=== PATIENT | female | born 1965 | race Caucasian/White ===

== ENCOUNTER 2016-11-01 08:05 | Outpatient (CLI) | payer OTHER | END 2016-11-01 08:06 | disposition home or self-care (01) | DX: E78.5 Hyperlipidemia, unspecified (principal); E11.9 Type 2 diabetes mellitus without complications; Z51.81 Encounter for therapeutic drug level monitoring ==

== ENCOUNTER 2016-11-09 10:01 | Outpatient (CLI) | payer OTHER | END 2016-11-09 10:02 | disposition home or self-care (01) | DX: Z12.31 Encounter for screening mammogram for malignant neoplasm of breast (principal) ==

== ENCOUNTER 2017-01-10 10:02 | Outpatient (CLI) | payer OTHER | END 2017-01-10 10:03 | disposition home or self-care (01) | DX: G47.33 Obstructive sleep apnea (adult) (pediatric) (principal) ==

== ENCOUNTER 2017-03-02 08:11 | Outpatient (CLI) | payer OTHER | END 2017-03-02 08:12 | disposition home or self-care (01) | DX: E78.5 Hyperlipidemia, unspecified (principal); Z79.899 Other long term (current) drug therapy; E11.9 Type 2 diabetes mellitus without complications ==

== ENCOUNTER 2017-06-28 10:00 | Outpatient (CLI) | payer OTHER ==
[2017-06-28 14:11] LABS: HEMOGLOBIN A1C 0.71 g/dL
[2017-06-28 14:20] LABS: ALBUMIN/GLOBULIN RATIO 1.2 (1.0-2.2); BILIRUBIN,TOTAL 0.4 mg/dL (0.2-1.0); BUN - BLOOD UREA NITROGEN 11 mg/dL (6-20); CALCIUM 9.4 mg/dL (8.5-10.3); CARBON DIOXIDE - CO2 27 mmol/L (21-32); CHLORIDE 102 mmol/L (101-111); CHOL/HDL RATIO 3.7 (<4.4); CHOLESTEROL 136 mg/dL; CREATININE 0.7 mg/dL (0.4-1.0); GFR - MDRD 87 (>89); GLUCOSE 139 mg/dL (70-100); HDL CHOLESTEROL 37 mg/dL; LDL/HDL RATIO 2.2 (<4.4); POTASSIUM 4.1 mmol/L (3.5-5.0); SODIUM 138 mmol/L (135-145); TOTAL PROTEIN 7.2 g/dL (6.7-8.2); TRIGLYCERIDES 92 mg/dL; VLDL CHOLESTEROL 18 mg/dL
== END 2017-06-28 10:01 | disposition home or self-care (01) ==
LOC: LAB.WCP 10:00
PROVIDERS: ATTEND Physician Assistant Medical
DX: K76.0 Fatty (change of) liver, not elsewhere classified (principal); E78.5 Hyperlipidemia, unspecified; E11.9 Type 2 diabetes mellitus without complications; Z51.81 Encounter for therapeutic drug level monitoring; Z79.899 Other long term (current) drug therapy
CPT/HCPCS: 36415; 80053; 80061; 83036

== ENCOUNTER 2017-11-11 08:00 | Outpatient (CLI) | payer OTHER ==
[2017-11-11 12:59] LABS: ALBUMIN 3.8 g/dL (3.2-5.5); ALBUMIN/GLOBULIN RATIO 1.3 (1.0-2.2); ALKALINE PHOSPHATASE 71 IU/L (42-121); ALT ALANINE AMINOTRANSFERASE 31 IU/L (10-60); AST ASPARTATE AMINOTRANSFERASE 27 IU/L (10-42); BILIRUBIN,TOTAL 0.5 mg/dL (0.2-1.0); BUN - BLOOD UREA NITROGEN 15 mg/dL (6-20); CALCIUM 8.5 mg/dL (8.5-10.3); CARBON DIOXIDE - CO2 28 mmol/L (21-32); CHLORIDE 102 mmol/L (101-111); CHOL/HDL RATIO 3.6 (<4.4); CHOLESTEROL 123 mg/dL; CREATININE 0.7 mg/dL (0.4-1.0); GFR - MDRD 87 (>89); GLUCOSE 105 mg/dL (70-100); HDL CHOLESTEROL 34 mg/dL; LDL CHOLESTEROL,CALCULATED 70 mg/dL; LDL/HDL RATIO 2.1 (<4.4); SODIUM 137 mmol/L (135-145); TOTAL PROTEIN 6.8 g/dL (6.7-8.2); VLDL CHOLESTEROL 19 mg/dL
[2017-11-11 13:01] LABS: HB2 TOTAL 15.8 g/dL; HEMOGLOBIN A1C 0.69 g/dL; HEMOGLOBIN A1C % 6.1 % (4.6-6.2)
== END 2017-11-11 08:01 | disposition home or self-care (01) ==
LOC: LAB.WCP 08:00
PROVIDERS: ATTEND Physician Assistant Medical
DX: E78.5 Hyperlipidemia, unspecified (principal); E11.9 Type 2 diabetes mellitus without complications; Z51.81 Encounter for therapeutic drug level monitoring; Z79.899 Other long term (current) drug therapy
CPT/HCPCS: 36415; 80053; 80061; 83036; 83721; 84443

== ENCOUNTER 2017-12-22 08:01 | Outpatient (CLI) | payer OTHER ==
--- NOTE | 2017-12-23 13:10 | Mammography Report ---
DIGITAL SCREENING MAMMOGRAM: 12/22/2017 CLINICAL INDICATION: A 52-year-old, for screening. COMPARISON: 10/2016, 07/2015, 02/2012, 01/2011. TECHNIQUE: Routine CC and MLO projections were obtained of the breasts. FINDINGS: The breasts again demonstrate scattered fibroglandular densities bilaterally. In the left upper outer posterior breast, there are possible new calcifications. Further evaluation with spot magnification views is recommended. No mammographically suspicious findings are appreciated in the right breast. IMPRESSION: INCOMPLETE EXAMINATION. RECOMMENDATION: ADDITIONAL EVALUATION OF THE LEFT BREAST ABOVE. BIRADS CATEGORY 0-INCOMPLETE. STANDARD QUALIFYING STATEMENTS: 1. This examination was reviewed with the aid of Computer-Aided Detection (CAD). 2. A negative or benign imaging report should not delay biopsy if clinically suspicious findings are present. Consider surgical consultation if warranted. More than 5% of cancers are not identified by imaging. 3. Dense breasts may obscure an underlying neoplasm. TD: 12/23/2017 13:09
== END 2017-12-22 08:02 | disposition home or self-care (01) ==
LOC: DI 08:01
PROVIDERS: ATTEND Physician Assistant Medical
DX: Z12.31 Encounter for screening mammogram for malignant neoplasm of breast (principal); R92.8 Other abnormal and inconclusive findings on diagnostic imaging of breast
CPT/HCPCS: 77067

== ENCOUNTER 2017-12-22 08:02 | Outpatient (CLI) | payer OTHER ==
--- NOTE | 2017-12-22 15:05 | DEXA Report ---
DEXA SCAN: 12/22/2017 CLINICAL INDICATION: Postmenopausal. TECHNIQUE: Dual energy x-ray absorptiometry (DXA) was performed on a [employer] system. Regions measured are the AP spine, femoral neck, and, if needed, forearm. COMPARISON: None. In accordance with the International Society for Clinical Densitometry (ISCD) guidelines, data from previous exams may be reanalyzed using current recommendations and techniques. This is done to allow a more accurate basis for comparison with the current study. FINDINGS The data for the lumbar spine is as follows: REGION BMD (g/cm/cm) T-SCORE Z-SCORE L1 1.024 -0.9 -1.2 L2 1.037 -1.4 -1.6 L3 1.057 -1.2 -1.5 L4 1.010 -1.6 -1.9 TOTAL 1.032 -1.2 -1.5 NOTE: All evaluable vertebrae are used for classification. The data for the hip is as follows: REGION BMD (g/cm/cm) T-SCORE Z-SCORE Neck 1.038 0.0 0.3 TOTAL 1.141 1.1 0.9 NOTE: The femoral neck or total proximal femur, whichever is lowest, is used for classification. IMPRESSION THE WHO CLASSIFICATION BASED ON THE INTERNATIONAL REFERENCE STANDARD IS OSTEOPENIA. THE FRACTURE RISK IS INCREASED. RECOMMENDATION: Patients with diagnosis of osteoporosis or osteopenia should have regular bone mineral density assessment. For those eligible for Medicare, routine testing is allowed once every 2 years. Testing frequency can be increased for patients who have rapidly progressing disease or for those who are receiving medical therapy to restore bone mass. COMMENT: World Health Organization (WHO) definitions for osteoporosis and osteopenia: NORMAL BMD: T-score at 1.0 or higher, fracture risk is low. OSTEOPENIA BMD: T-score between 1.0 and -2.5, fracture risk is increased. OSTEOPOROSIS BMD: T-score at 2.5 or lower, fracture risk high. National Osteoporosis Foundation recommends: 1. Obtain adequate dietary calcium (at least 1200 mg per day) and vitamin D (400 -800 international units per day). 2. Participate, as appropriate, in regular weightbearing and muscle- strengthening exercise. 3. Avoid tobacco use and reduce alcohol and caffeine intake. 4. For more detailed information see the website at www.NOF.org. TD: 12/22/2017 13:06 JENNIFER
== END 2017-12-22 08:03 | disposition home or self-care (01) ==
LOC: DI 08:02
PROVIDERS: ATTEND Physician Assistant Medical
DX: M85.88 Other specified disorders of bone density and structure, other site (principal)
CPT/HCPCS: 77080

== ENCOUNTER 2017-12-28 13:18 | Outpatient (CLI) | payer OTHER ==
--- NOTE | 2017-12-28 14:45 | Mammography Report ---
DIAGNOSTIC LEFT MAMMOGRAM: 12/28/2017 CLINICAL INDICATION: Calcifications left upper outer quadrant. TECHNIQUE: Left true lateral and spot magnification views. COMPARISON: 12/22/2017, 11/09/2016, 08/19/2015, 02/23/2012, 02/16/2011. FINDINGS: The left breast again demonstrates scattered fibroglandular densities. In the left upper outer central breast, there is a group of amorphous to pleomorphic calcifications, spanning approximately 1.4 cm of parenchyma. No definite associated mass is identified. The appearance is suspicious. Biopsy is recommended. The calcifications appear amenable to stereotactic sampling. IMPRESSION: SUSPICIOUS AMORPHOUS TO PLEOMORPHIC CALCIFICATIONS IN THE LEFT UPPER OUTER QUADRANT. RECOMMENDATION: Biopsy. The calcifications appear amenable to stereotactic sampling. BIRADS CATEGORY 4 - suspicious abnormality. Results and recommendations discussed with the patient at the time of the examination, and called to the office of Luanne Patel PA-C on 12/28/2017. Imaging will be forwarded to [facility] to coordinate stereotactic biopsy. STANDARD QUALIFYING STATEMENTS: 1. This examination was reviewed with the aid of Computer-Aided Detection (CAD) . 2. A negative or benign imaging report should not delay biopsy if clinically suspicious findings are present. Consider surgical consultation if warranted. More than 5 % of cancers are not identified by imaging. 3. Dense breasts may obscure an underlying neoplasm. TD: 12/28/2017 14:44 JENNIFER
== END 2017-12-28 13:19 | disposition home or self-care (01) ==
LOC: DI 13:18
PROVIDERS: ATTEND Physician Assistant Medical
DX: R92.1 Mammographic calcification found on diagnostic imaging of breast (principal)

== ENCOUNTER 2018-01-24 10:00 | Outpatient (CLI) | payer OTHER ==
[2018-01-24 12:49] LABS: ALBUMIN 3.6 g/dL (3.2-5.5); ALBUMIN/GLOBULIN RATIO 1.2 (1.0-2.2); BILIRUBIN,TOTAL 0.4 mg/dL (0.2-1.0); CALCIUM 8.8 mg/dL (8.5-10.3); CREATININE 0.7 mg/dL (0.4-1.0); TOTAL PROTEIN 6.7 g/dL (6.7-8.2)
== END 2018-01-24 10:01 | disposition home or self-care (01) ==
LOC: LAB.WCP 10:00
PROVIDERS: ATTEND Family Medicine
DX: Z51.81 Encounter for therapeutic drug level monitoring (principal); Z79.899 Other long term (current) drug therapy
CPT/HCPCS: 36415; 80053

== ENCOUNTER 2018-01-30 07:50 | Outpatient (CLI) | payer OTHER ==
[2018-01-30] MEDS ORDERED: GADOBUTROL 10 MMOL/10 ML SYRINGE ONE (07:57)
[2018-01-30] MEDS ORDERED: GADOBUTROL 10 MMOL/10 ML SYRINGE IVP ONE (08:32)
--- NOTE | 2018-01-30 14:27 | MRI Report ---
MRI OF BILATERAL BREASTS WITH AND WITHOUT CONTRAST: 01/30/2018 CLINICAL INDICATION: Biopsy-proven left breast cancer. TECHNIQUE: Using a dedicated breast coil, axial precontrast STIR, T1, dynamic postcontrast axial 3-D images, axial 3-D high resolution images, and postcontrast diffusion-weighted images were obtained. 9 mL of Gadavist was administered intravenously. Post-processing with dynamic contrast enhancement analysis and multiplanar reformations were performed with the [employer]. FINDINGS: The breasts demonstrate minimal background parenchymal enhancement. RIGHT BREAST: There is no suspicious mass or parenchymal enhancement. Right axillary lymph nodes are morphologically normal. LEFT BREAST: In the left upper central posterior breast, approximately 8 cm from the nipple, there is a focus of enhancement, likely correlating with the biopsied ductal carcinoma in situ with small focus of invasive carcinoma. This measures 1.5 x 1.3 x 0.9 cm, and demonstrates moderate enhancement with plateau kinetics. There is a morphologically indeterminate left axillary lymph node. IMPRESSION: FOCUS OF ABNORMAL ENHANCEMENT IN THE LEFT UPPER CENTRAL POSTERIOR BREAST, LIKELY CORRELATING WITH THE BIOPSIED DUCTAL CARCINOMA IN SITU AND SMALL FOCUS OF INVASIVE CARCINOMA. MORPHOLOGICALLY INDETERMINATE LEFT AXILLARY LYMPH NODE. NO EVIDENCE OF SKIN, NIPPLE, OR CHEST WALL INVOLVEMENT. NO EVIDENCE OF CONTRALATERAL ABNORMALITY. RECOMMENDATION: SURGICAL TREATMENT PLANNING. BIRADS CATEGORY 6-KNOWN MALIGNANCY. THE PATIENT HAS BEEN INSTRUCTED TO OBTAIN RESULTS FROM MAU ESCOBAR PA-C IN 5 BUSINESS DAYS. COMMENT: BREAST MRI IS A HIGHLY SENSITIVE EXAMINATION, AND HAS A CANCER DETECTION THRESHOLD DOWN TO APPROXIMATELY 5 MM; HOWEVER, IT ONLY HAS MODERATE SPECIFICITY. ALTHOUGH BREAST MRI HAS A HIGH NEGATIVE PREDICTIVE VALUE, APPROPRIATE CLINICAL AND MAMMOGRAPHIC FOLLOWUP ARE ALWAYS NECESSARY. MRI MAY MISS LESS ANGIOGENIC TUMORS; THEREFORE, IT SHOULD NOT BE USED TO AVOID A BIOPSY WHICH IS OTHERWISE CLINICALLY INDICATED. NORMAL APPEARING LYMPH NODES MAY CONTAIN MICROSCOPIC TUMOR. DUE TO PRONE POSITIONING, THE DESCRIBED LOCATION OF FINDINGS MAY DIFFER FROM OTHER MODALITIES. TD: 01/30/2018 14:26
== END 2018-01-30 07:51 | disposition home or self-care (01) ==
LOC: DI 07:50
PROVIDERS: ATTEND Physician Assistant Medical
DX: D05.12 Intraductal carcinoma in situ of left breast (principal); C50.812 Malignant neoplasm of overlapping sites of left female breast
CPT/HCPCS: 77059; A9585

== ENCOUNTER 2018-03-09 08:00 | Outpatient (CLI) | payer OTHER ==
[2018-03-09 12:54] LABS: HB2 TOTAL 15.2 g/dL; HEMOGLOBIN A1C 0.73 g/dL; HEMOGLOBIN A1C % 6.5 % (4.6-6.2)
[2018-03-09 13:05] LABS: CHOLESTEROL 123 mg/dL; HDL CHOLESTEROL 31 mg/dL; LDL CHOLESTEROL,CALCULATED 69 mg/dL; LDL/HDL RATIO 2.2 (<4.4); VLDL CHOLESTEROL 23 mg/dL
== END 2018-03-09 08:01 | disposition home or self-care (01) ==
LOC: LAB.WCP 08:00
PROVIDERS: ATTEND Physician Assistant Medical
DX: E78.5 Hyperlipidemia, unspecified (principal); E11.9 Type 2 diabetes mellitus without complications
CPT/HCPCS: 36415; 80061; 83036; 83721

== ENCOUNTER 2018-04-25 08:51 | Outpatient (CLI) | payer OTHER | END 2018-04-25 08:52 | disposition home or self-care (01) | LOC: SC 08:51 | PROVIDERS: ATTEND Nurse Practitioner Family | DX: G47.33 Obstructive sleep apnea (adult) (pediatric) (principal) | CPT/HCPCS: 99212; 99213 ==

== ENCOUNTER 2018-06-14 07:25 | Outpatient (CLI) | payer OTHER ==
[2018-06-14 13:21] LABS: HB2 TOTAL 14.6 g/dL; HEMOGLOBIN A1C 0.74 g/dL; HEMOGLOBIN A1C % 6.8 % (4.6-6.2)
[2018-06-14 13:22] LABS: CALCIUM 8.7 mg/dL (8.5-10.3); CREATININE 0.6 mg/dL (0.4-1.0)
== END 2018-06-14 07:26 | disposition home or self-care (01) ==
LOC: LAB.WCP 07:25
PROVIDERS: ATTEND Physician Assistant Medical
DX: E11.9 Type 2 diabetes mellitus without complications (principal)
CPT/HCPCS: 36415; 80048; 83036

== ENCOUNTER 2018-09-11 07:35 | Outpatient (CLI) | payer OTHER ==
[2018-09-11 16:57] LABS: ALBUMIN 3.6 g/dL (3.2-5.5); ALBUMIN/GLOBULIN RATIO 1.2 (1.0-2.2); ALKALINE PHOSPHATASE 54 IU/L (42-121); ALT ALANINE AMINOTRANSFERASE 32 IU/L (10-60); AST ASPARTATE AMINOTRANSFERASE 36 IU/L (10-42); BILIRUBIN,TOTAL 0.7 mg/dL (0.2-1.0); BUN - BLOOD UREA NITROGEN 12 mg/dL (6-20); CALCIUM 8.6 mg/dL (8.5-10.3); CARBON DIOXIDE - CO2 27 mmol/L (21-32); CHLORIDE 106 mmol/L (101-111); CHOL/HDL RATIO 4.2 (<4.4); CHOLESTEROL 123 mg/dL; CREATININE 0.6 mg/dL (0.4-1.0); GFR - MDRD 104 (>89); GLUCOSE 122 mg/dL (70-100); HDL CHOLESTEROL 29 mg/dL; LDL CHOLESTEROL,CALCULATED 75 mg/dL; LDL/HDL RATIO 2.6 (<4.4); SODIUM 138 mmol/L (135-145); TOTAL PROTEIN 6.5 g/dL (6.7-8.2); VLDL CHOLESTEROL 19 mg/dL
[2018-09-11 17:22] LABS: HB2 TOTAL 15.1 g/dL; HEMOGLOBIN A1C 0.66 g/dL; HEMOGLOBIN A1C % 6.2 % (4.6-6.2)
== END 2018-09-11 07:36 | disposition home or self-care (01) ==
LOC: LAB.WCP 07:35
PROVIDERS: ATTEND Physician Assistant Medical
DX: E11.9 Type 2 diabetes mellitus without complications (principal)
CPT/HCPCS: 36415; 80053; 80061; 83036; 83721

== ENCOUNTER 2018-10-25 08:21 | Outpatient (CLI) | payer OTHER ==
--- NOTE | 2018-10-25 09:29 | Mammography Report ---
Reason: LT BREAST CA Procedure Date: 10/25/2018 Accession Number: [id number] / [id number] Procedure: NICK - Diagnostic Dig Bilat CPT Code: FULL RESULT: EXAM: Diagnostic Dig Bilat DATE: 10/25/2018 9:10 AM CLINICAL HISTORY: Diagnostic examination. Personal history of left breast cancer status post lumpectomy December 2017 followed by Radiation therapy. This is a new baseline post treatment. TECHNIQUE: Bilateral CC and MLO views were obtained and 2-D and 3-D mammographic technique. COMPARISON: 12/28/2017 through 02/23/2012. FINDINGS: The breasts demonstrate scattered fibroglandular densities bilaterally. Interval postsurgical and posttreatment changes are now noted in the left breast. No suspicious calcifications, architectural distortion or masses are identified. IMPRESSION: Benign findings RECOMMENDATION: 6 month diagnostic mammogram of the left breast. Annual screening for the right breast. BIRADS CATEGORY 2: Benign findings STANDARD QUALIFYING STATEMENTS: 1. This examination was not reviewed with the aid of Computer-Aided Detection (CAD). 2. A negative or benign imaging report should not delay biopsy if clinically suspicious findings are present. Consider surgical consultation if warrented. More than 5% of cancers are not identified by imaging. 3. Dense breasts may obscure an underlying neoplasm. 4. This examination was reviewed with the aid of 3D imaging (tomography).
== END 2018-10-25 08:22 | disposition home or self-care (01) ==
LOC: DI 08:21
PROVIDERS: ATTEND Internal Medicine Hematology & Oncology
DX: Z08 Encounter for follow-up examination after completed treatment for malignant neoplasm (principal); Z85.3 Personal history of malignant neoplasm of breast
CPT/HCPCS: 77066

== ENCOUNTER 2019-01-08 07:50 | Outpatient (CLI) | payer OTHER ==
[2019-01-08 13:59] LABS: BASOPHILS # (AUTO) 0.1 10^3/uL (0.0-0.1); BASOPHILS % (AUTO) 0.9 %; EOSINOPHILS # (AUTO) 0.1 10^3/uL (0.0-0.7); EOSINOPHILS % (AUTO) 2.2 %; HGB - HEMOGLOBIN 13.7 g/dL (12.0-16.0); LYMPHOCYTES # (AUTO) 2.3 10^3/uL (1.5-3.5); LYMPHOCYTES % (AUTO) 33.9 %; MEAN CORPUSCULAR HGB CONC 34.5 g/dL (32.0-36.0); MEAN CORPUSCULAR VOLUME 92.8 fL (81.0-99.0); MEAN PLATELET VOLUME 9.8 fL (7.9-10.8); MONOCYTES # (AUTO) 0.5 10^3/uL (0.0-1.0); MONOCYTES % (AUTO) 8.1 %; NEUTROPHILS # (AUTO) 3.7 10^3/uL (1.5-6.6); NEUTROPHILS % (AUTO) 54.9 %; PLT - PLATELET COUNT 198 10^3/uL (130-450); RED BLOOD COUNT 4.27 10^6/uL (4.20-5.40); RED CELL DISTRIBUTION WIDTH 13.1 % (12.0-15.0); WHITE BLOOD COUNT 6.7 x10^3/uL (4.8-10.8)
[2019-01-08 14:23] LABS: ALBUMIN 3.6 g/dL (3.2-5.5); ALBUMIN/GLOBULIN RATIO 1.1 (1.0-2.2); ALKALINE PHOSPHATASE 63 IU/L (42-121); ALT ALANINE AMINOTRANSFERASE 37 IU/L (10-60); AST ASPARTATE AMINOTRANSFERASE 48 IU/L (10-42); BILIRUBIN,TOTAL 0.7 mg/dL (0.2-1.0); BUN - BLOOD UREA NITROGEN 9 mg/dL (6-20); CALCIUM 8.8 mg/dL (8.5-10.3); CARBON DIOXIDE - CO2 27 mmol/L (21-32); CHLORIDE 102 mmol/L (101-111); CHOL/HDL RATIO 4.3 (<4.4); CHOLESTEROL 115 mg/dL; CREATININE 0.6 mg/dL (0.4-1.0); GFR - MDRD 104 (>89); GLUCOSE 173 mg/dL (70-100); HDL CHOLESTEROL 27 mg/dL; LDL CHOLESTEROL,CALCULATED 71 mg/dL; LDL/HDL RATIO 2.6 (<4.4); SODIUM 138 mmol/L (135-145); TOTAL PROTEIN 6.8 g/dL (6.7-8.2); VLDL CHOLESTEROL 17 mg/dL
[2019-01-08 14:42] LABS: HB2 TOTAL 14.7 g/dL; HEMOGLOBIN A1C 0.87 g/dL; HEMOGLOBIN A1C % 7.6 % (4.6-6.2)
== END 2019-01-08 07:51 | disposition home or self-care (01) ==
LOC: LAB.WCP 07:50
PROVIDERS: ATTEND Physician Assistant Medical
DX: Z00.00 Encounter for general adult medical examination without abnormal findings (principal); E78.5 Hyperlipidemia, unspecified; E11.9 Type 2 diabetes mellitus without complications
CPT/HCPCS: 36415; 80053; 80061; 82043; 83036; 83721; 84443; 85025

== ENCOUNTER 2019-04-09 08:00 | Outpatient (CLI) | payer OTHER ==
[2019-04-09 16:01] LABS: CREATININE 0.6 mg/dL (0.4-1.0)
[2019-04-09 16:30] LABS: HB2 TOTAL 13.3 g/dL; HEMOGLOBIN A1C 0.65 g/dL; HEMOGLOBIN A1C % 6.6 % (4.6-6.2)
== END 2019-04-09 23:59 | disposition home or self-care (01) ==
LOC: LAB.WCP 08:00
PROVIDERS: ATTEND Physician Assistant Medical
DX: E11.9 Type 2 diabetes mellitus without complications (principal)
CPT/HCPCS: 36415; 80048; 83036

== ENCOUNTER 2019-05-24 12:46 | Outpatient (CLI) | payer OTHER ==
[2019-05-24 13:53] VITALS: BP 118/70
--- NOTE | 2019-05-24 13:53 | SLEEP CARE CONSULTATION ---
Information from patient questionnaire entered by Geetha Marina. I have reviewed and concur with the information entered by Geetha Marina. This document represents the service I personally performed and the decisions made by me, Cyn Castorena, RN, MSN, CLOTH GRADER. - History of Present Illness HPI: ALLEN CROOKS was diagnosed to have mild, AHI 5.5, obstructive sleep apnea- hypopnea syndrome and returned today for CPAP therapy annual follow-up. Changes since last seen is breast cancer, one year cancer free. Her sister has come to reside with her since patient's spouse . Since last seen, she has lost about 20 more pounds from diet change and increase in activity. She is not actively trying to lose weight right now. 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 Equipment obtained from: [facility] Mask style: Nasal pillows Mask brand: Resmed Backup mask available: Yes Last cushion change: a month ago - Compliance Data Reviewed with Patient Average duration of nightly device use: 8.3 Compliance rate % (4+hrs/night over past 30 nights): 97.2 (180 days) Current pressure setting (cmH2O): 6 Humidity settin Heated hose settin Average residual AHI: 2.6 Average large leak: 3 sec - Subjective Patient concerns: reports: dry mouth, nose, throat (a few times a week.). denies: aerophagia, mask discomfort, air blowing in eyes, mask leak noise, condensation in mask/hose, nasal congestion Initial [place] Sleepiness Scale score: 18 Current [place] Sleepiness Scale score: 1 - Review of Systems Cardiovascular: reports: high blood pressure Gastrointestinal: reports: heartburn, diarrhea Ear/Nose/Throat: reports: nasal congestion, sinus problems, nose bleeds, dry mouth/throat, tonsillectomy, wisdom teeth removed Endocrine: reports: too hot or cold, excessive thirst Musculoskeletal: reports: muscle pain or cramping Immunologic: reports: sneezing, other (MRI dye) - Allergies/Medications Medication Name (generic/name brand) Strength & Dosage Multivitamins Tab one daily Caltrate 600 Plus-Vit D Tabs one daily Fish Oil 1200mg cap twice daily Advanced Fiber Complex Cap two daily Vitamin D3 1000unit tab three daily CoQ10 1000mg cap one daily Biotin 1000mcg tab two daily Ferrous Sulfate 325mg tab one three times daily Claritin 10mg tab one daily Aspirin EC 81mg tab one daily Omeprazole DR 20mg cap one daily Effexor XR 150mg cap one daily Hydrochlorothiazide 12.5mg tab one daily Lipitor 40mg tab one daily at bedtime Lantus Solostar 100 unit/ml SQ genna. Inject 30 units am 50 units pm Glipizide XL 5mg tab one daily in the morning and evening Metformin HCL 500mg tab one am, two pm Singulair 10mg tab one daily Lisinopril 2.5mg tab one daily Flovent HFA 220 mcg/act Inhale one puff twice daily Sudafed PE OTC tab one prn Cinnamon 1000mg cap one daily Turmeric Circumin 500mg cap one daily Docusate sodium 100mg tab prn Trulicity 1.5mg daily No known drug allergies: Yes (MRI contrast dye - facial edema. ) Allergies and home medications reviewed: Yes - Physical Examination Blood Pressure: 118/70 Cuff size: regular Heart Rate: 73 O2 Saturation: 98 Height: 5 ft 4 in Weight (kg): 87.09 kg Weight change since last visit: lost 21 pounds Body Mass Index: 32.9 BMI Classification: Class 1 - Impression 1. Obstructive Sleep Apnea-Hypopnea Syndrome, mild, with good treatment compliance and good apnea control. On CPAP therapy, there is improved sleep quality and continues to feel more rested overall. Since she has lost weight and is hoping to lose more slowly. I discussed how weight loss can reduce CPAP pressure requirements and symptoms to report for adjustment. For oral dryness, I instructed her to increase humidity to 3 which is the maximum for that machine and lower the heated hose to 2 for the summer. The heated hose is primarily to reduce condensation. Her CPAP device is over 5 years old and could be replaced but patient states working fine and does not want to replace at this time. If the device starts getting noisy, she is to consider replacement. She is traveling by plane to see [facility] and is tired of bulkiness of CPAP to carry through. She was shown now to disconnect the humifier reservoir to make smaller. She can test at home for comfort and noise. She is advised to use saline nasal spray to prep nose prior to CPAP use. Patient's apnea severity and rationale for treatment to reduce apnea, improve sleep quality and reduce cardiovascular and cerebrovascular events was reviewed. I also reviewed the benefit of consistent device use of CPAP for hypertension, diabetes. - Plan Plan: Continue nasal CPAP pressure at 6 cm H2O. Notify me if snoring with the mask or feeling that the pressure is too much or too little. Continue to lose weight. Implement methods to reduce oral dryness. Travel tips. Return for follow-up in one year, or sooner if concerns arise. I spent 100% of this 35 minute visit face to face with the patient with greater than 50% of this was spent time counseling the patient and coordination of care.
== END 2019-05-24 12:47 | disposition home or self-care (01) ==
LOC: SC 12:46
PROVIDERS: ATTEND Nurse Practitioner Family
DX: G47.33 Obstructive sleep apnea (adult) (pediatric) (principal)
CPT/HCPCS: 99212; 99214

== ENCOUNTER 2019-06-20 14:37 | Outpatient (CLI) | payer OTHER ==
--- NOTE | 2019-06-20 16:35 | XRAY Report ---
Reason: CELLULITIS Procedure Date: 06/20/2019 Accession Number: [id number] / [id number] Procedure: WCP - Finger(s) LT CPT Code: FULL RESULT: EXAM: LEFT SECOND DIGIT RADIOGRAPHY EXAM DATE: 06/20/2019 02:55 PM. CLINICAL HISTORY: Second digit swelling after nail injury. COMPARISON: None. TECHNIQUE: 3 views. FINDINGS: Bones: On the lateral view there is a probable nondisplaced fracture through the head of the second distal proximal phalanx with minimal displacement extending to the margin of the joint. There is also some irregularly about the lateral distal proximal phalanx as seen on the frontal view. Joints: Normal. No subluxations. Soft Tissues: Soft tissue swelling about the proximal phalanx of the second digit noted. No radiopaque foreign body visualized. IMPRESSION: 1. Probable nondisplaced periarticular fracture involving the distal aspect of the second proximal phalanx. 2. Adjacent soft tissue swelling adjacent to the second proximal phalanx noted. No radiopaque foreign body. RADIA
== END 2019-06-20 23:59 | disposition home or self-care (01) ==
LOC: DI.WCP 14:37
PROVIDERS: ATTEND Family Medicine
DX: L03.90 Cellulitis, unspecified (principal); R22.32 Localized swelling, mass and lump, left upper limb
CPT/HCPCS: 73140

== ENCOUNTER 2019-07-20 08:00 | Outpatient (CLI) | payer OTHER ==
[2019-07-20 12:33] LABS: HB2 TOTAL 13.8 g/dL; HEMOGLOBIN A1C 0.67 g/dL; HEMOGLOBIN A1C % 6.6 % (4.6-6.2)
[2019-07-20 12:36] LABS: ALBUMIN 3.7 g/dL (3.2-5.5); ALBUMIN/GLOBULIN RATIO 1.2 (1.0-2.2); ALKALINE PHOSPHATASE 52 IU/L (42-121); ALT ALANINE AMINOTRANSFERASE 34 IU/L (10-60); AST ASPARTATE AMINOTRANSFERASE 43 IU/L (10-42); BILIRUBIN,TOTAL 0.4 mg/dL (0.2-1.0); BUN - BLOOD UREA NITROGEN 12 mg/dL (6-20); CALCIUM 9.1 mg/dL (8.5-10.3); CARBON DIOXIDE - CO2 27 mmol/L (21-32); CHLORIDE 106 mmol/L (101-111); CHOL/HDL RATIO 3.9 (<4.4); CHOLESTEROL 121 mg/dL; CREATININE 0.6 mg/dL (0.4-1.0); GFR - MDRD 103 (>89); GLUCOSE 143 mg/dL (70-100); HDL CHOLESTEROL 31 mg/dL; LDL CHOLESTEROL,CALCULATED 75 mg/dL; LDL/HDL RATIO 2.4 (<4.4); SODIUM 140 mmol/L (135-145); TOTAL PROTEIN 6.8 g/dL (6.7-8.2); VLDL CHOLESTEROL 15 mg/dL
== END 2019-07-20 23:49 | disposition home or self-care (01) ==
LOC: LAB.WCP 08:00
PROVIDERS: ATTEND Physician Assistant Medical
DX: E11.9 Type 2 diabetes mellitus without complications (principal)
CPT/HCPCS: 36415; 80053; 80061; 83036; 83721

== ENCOUNTER 2019-11-26 08:17 | Outpatient (CLI) | payer OTHER ==
--- NOTE | 2019-11-26 11:02 | Mammography Report ---
Reason: LT BREAST CA Procedure Date: 11/26/2019 Accession Number: [id number] / [id number] Procedure: NICK - Diagnostic Dig Bilat CPT Code: Final Report FULL RESULT: EXAM: Diagnostic Dig Bilat DATE: 11/26/2019 8:53 AM CLINICAL HISTORY: Personal history of left breast cancer. TECHNIQUE: (B) - Bilateral CC and MLO views were obtained. COMPARISON: 10/25/2018, 12/28/2017, 12/22/2017, 11/09/2016, 08/19/2015 and 02/23/2012 PARENCHYMAL PATTERN: (A) - The breasts demonstrate scattered fibroglandular densities bilaterally. FINDINGS: No significant interval change. Stable posttreatment changes left upper outer quadrant and axilla. There are no new suspicious masses, calcifications, or areas of distortion. IMPRESSION: Benign findings. BI-RADS category 2. RECOMMENDATION: (ANNUAL) - Recommend routine annual screening mammography. BI-RADS CATEGORY: (2) - Benign Findings. STANDARD QUALIFYING STATEMENTS: 1. This examination was not reviewed with the aid of Computer-Aided Detection (CAD). 2. A negative or benign imaging report should not preclude biopsy if clinically suspicious findings are present. 3. Dense breasts may obscure an underlying neoplasm. 4. This examination was reviewed without the aid of 3D breast imaging (tomosynthesis).
== END 2019-11-26 08:18 | disposition home or self-care (01) ==
LOC: DI 08:17
PROVIDERS: ATTEND Internal Medicine Hematology & Oncology
DX: C50.912 Malignant neoplasm of unspecified site of left female breast (principal); Z17.0 Estrogen receptor positive status [ER+]; Z85.3 Personal history of malignant neoplasm of breast
CPT/HCPCS: 77066

== ENCOUNTER 2020-03-14 08:00 | Outpatient (CLI) | payer OTHER ==
[2020-03-14 14:07] LABS: ALBUMIN 3.4 g/dL (3.2-5.5); ALBUMIN/GLOBULIN RATIO 1.1 (1.0-2.2); ALKALINE PHOSPHATASE 65 IU/L (42-121); ALT ALANINE AMINOTRANSFERASE 30 IU/L (10-60); AST ASPARTATE AMINOTRANSFERASE 41 IU/L (10-42); BILIRUBIN,TOTAL 0.6 mg/dL (0.2-1.0); BUN - BLOOD UREA NITROGEN 12 mg/dL (6-20); CALCIUM 8.7 mg/dL (8.5-10.3); CARBON DIOXIDE - CO2 28 mmol/L (21-32); CHLORIDE 106 mmol/L (101-111); CHOL/HDL RATIO 3.7 (<4.4); CHOLESTEROL 116 mg/dL; CREATININE 0.6 mg/dL (0.4-1.0); GLUCOSE 169 mg/dL (70-100); HDL CHOLESTEROL 31 mg/dL; LDL CHOLESTEROL,CALCULATED 67 mg/dL; LDL/HDL RATIO 2.2 (<4.4); SODIUM 139 mmol/L (135-145); TOTAL PROTEIN 6.6 g/dL (6.7-8.2); VLDL CHOLESTEROL 18 mg/dL
[2020-03-14 14:17] LABS: HB2 TOTAL 14.3 g/dL; HEMOGLOBIN A1C 0.91 g/dL
== END 2020-03-14 23:59 | disposition home or self-care (01) ==
LOC: LAB.WCP 08:00
PROVIDERS: ATTEND Physician Assistant Medical
DX: E11.9 Type 2 diabetes mellitus without complications (principal)
CPT/HCPCS: 36415; 80053; 80061; 83036; 83721

== ENCOUNTER 2020-06-23 07:47 | Outpatient (CLI) | payer OTHER ==
[2020-06-23 12:06] LABS: CALCIUM 9.9 mg/dL (8.5-10.3); CREATININE 0.6 mg/dL (0.4-1.0)
[2020-06-23 12:55] LABS: HEMOGLOBIN A1c% 6.6 % (4.27-6.07)
== END 2020-06-23 23:59 | disposition home or self-care (01) ==
LOC: LAB.WCP 07:47
PROVIDERS: ATTEND Physician Assistant Medical
DX: E11.9 Type 2 diabetes mellitus without complications (principal)
CPT/HCPCS: 36415; 80048; 83036

== ENCOUNTER 2020-08-07 15:11 | Outpatient (CLI) | payer OTHER | END 2020-08-07 15:12 | disposition home or self-care (01) | LOC: SC 15:11 | PROVIDERS: ATTEND Nurse Practitioner Family | DX: Z53.9 Procedure and treatment not carried out, unspecified reason (principal) ==

== ENCOUNTER 2020-09-22 08:00 | Outpatient (CLI) | payer OTHER ==
[2020-09-22 13:45] LABS: BASOPHILS # (AUTO) 0.1 10^3/uL (0.0-0.1); BASOPHILS % (AUTO) 0.8 %; EOSINOPHILS # (AUTO) 0.1 10^3/uL (0.0-0.7); EOSINOPHILS % (AUTO) 1.9 %; HGB - HEMOGLOBIN 14.3 g/dL (12.0-16.0); LYMPHOCYTES # (AUTO) 2.5 10^3/uL (1.5-3.5); LYMPHOCYTES % (AUTO) 33.2 %; MEAN CORPUSCULAR HGB CONC 33.7 g/dL (32.0-36.0); MEAN CORPUSCULAR VOLUME 94.9 fL (81.0-99.0); MEAN PLATELET VOLUME 11.6 fL (7.9-10.8); MONOCYTES # (AUTO) 0.6 10^3/uL (0.0-1.0); MONOCYTES % (AUTO) 8.1 %; NEUTROPHILS # (AUTO) 4.1 10^3/uL (1.5-6.6); NEUTROPHILS % (AUTO) 55.7 %; PLT - PLATELET COUNT 210 10^3/uL (130-450); RED BLOOD COUNT 4.47 10^6/uL (4.20-5.40); RED CELL DISTRIBUTION WIDTH 12.4 % (12.0-15.0); WHITE BLOOD COUNT 7.4 x10^3/uL (4.8-10.8)
[2020-09-22 14:01] LABS: CREATININE,URINE 182.2 mg/dL; MICROALBUM/CREATININE RATIO,UR 2.2 ug/mg (<30.0); MICROALBUMIN,URINE 0.4 mg/dL (0-300.0)
[2020-09-22 14:13] LABS: ALBUMIN 3.8 g/dL (3.2-5.5); ALBUMIN/GLOBULIN RATIO 1.3 (1.0-2.2); ALKALINE PHOSPHATASE 61 IU/L (42-121); ALT ALANINE AMINOTRANSFERASE 32 IU/L (10-60); AST ASPARTATE AMINOTRANSFERASE 32 IU/L (10-42); BILIRUBIN,TOTAL 0.6 mg/dL (0.2-1.0); BUN - BLOOD UREA NITROGEN 13 mg/dL (6-20); CALCIUM 9.3 mg/dL (8.5-10.3); CARBON DIOXIDE - CO2 28 mmol/L (21-32); CHLORIDE 105 mmol/L (101-111); CHOL/HDL RATIO 4.1 (<4.4); CHOLESTEROL 139 mg/dL; CREATININE 0.7 mg/dL (0.4-1.0); GLUCOSE 131 mg/dL (70-100); HDL CHOLESTEROL 34 mg/dL; LDL CHOLESTEROL,CALCULATED 90 mg/dL; LDL/HDL RATIO 2.6 (<4.4); SODIUM 141 mmol/L (135-145); TOTAL PROTEIN 6.8 g/dL (6.7-8.2); VLDL CHOLESTEROL 15 mg/dL
[2020-09-22 14:28] LABS: HEMOGLOBIN A1c% 6.4 % (4.27-6.07)
== END 2020-09-22 23:59 | disposition home or self-care (01) ==
LOC: LAB.WCP 08:00
PROVIDERS: ATTEND Physician Assistant Medical
DX: E11.9 Type 2 diabetes mellitus without complications (principal); J45.998 Other asthma
CPT/HCPCS: 36415; 80053; 80061; 82043; 82570; 83036; 83721; 84443; 85025

== ENCOUNTER 2020-11-27 08:22 | Outpatient (CLI) | payer OTHER ==
--- NOTE | 2020-11-27 15:47 | DEXA Report ---
PROCEDURE: Dexa Spine and/or Hip INDICATIONS: POSTMENOPAUSAL TECHNIQUE: Dual energy x-ray absorptiometry (DXA) was performed on a [employer] System. Regions measur ed are the AP Spine, femoral neck, and if needed forearm. COMPARISON: 12/22/2017. FINDINGS: Lumbar Spine: Bone Mineral Density 1.031 g/cm/cm,T score -1.2, osteopenia Left Hip: Bone Mineral Density 1.1-6 g/cm/cm,T score 0.9, normal Left Femoral Neck: Bone Mineral Density 1.031 g/cm/cm, T score -0.1, normal (T score greater or equal to -1.0: NORMAL) (T score from -1.1 to -2.4: OSTEOPENIA) (T score less than or equal to -2.5 to: OSTEOPOROSIS) Impression: Osteopenia. Bone mineral density has decreased by 1.3% in the interval since prior examin ation. Patients with diagnosis of osteoporosis or osteopenia should have regular bone mineral density assess ment. For those eligible for Medicare, routine testing is allowed once every 2 years. Testing frequ ency can be increased for patients who have rapidly progressing disease or for those who are receivin g medical therapy to restore bone mass. Reviewed by: Nicole Aguilar MD, PhD on 11/27/2020 3:46 PM PST Approved by: Nicole Aguilar MD, PhD on 11/27/2020 3:46 PM PST Station ID: [id number]
== END 2020-11-27 08:23 | disposition home or self-care (01) ==
LOC: DI 08:22
PROVIDERS: ATTEND Physician Assistant Medical
DX: M85.89 Other specified disorders of bone density and structure, multiple sites (principal); Z78.0 Asymptomatic menopausal state

== ENCOUNTER 2020-12-22 07:45 | Outpatient (CLI) | payer OTHER ==
[2020-12-22 12:34] LABS: CALCIUM 9.4 mg/dL (8.5-10.3); CREATININE 0.7 mg/dL (0.4-1.0); POTASSIUM 4.1 mmol/L (3.5-5.0)
[2020-12-22 13:00] LABS: ESTIMATED AVERAGE GLUCOSE 137 mg/dL (70-100); HEMOGLOBIN A1c% 6.4 % (4.27-6.07)
== END 2020-12-22 23:59 | disposition home or self-care (01) ==
LOC: LAB.WCP 07:45
PROVIDERS: ATTEND Physician Assistant Medical
DX: E11.9 Type 2 diabetes mellitus without complications (principal)
CPT/HCPCS: 36415; 80048; 83036

== ENCOUNTER 2021-04-10 17:31 | Outpatient (CLI) | payer OTHER ==
--- NOTE | 2021-04-10 20:38 | XRAY Report ---
PROCEDURE: Thoracic Spine 2 View INDICATIONS: THORACIC BACK PAIN TECHNIQUE: 3 views of the thoracic spine were acquired. COMPARISON: None. FINDINGS: Bones: No fractures or dislocations. No suspicious bony lesions. 11 pairs of ribs are noted, and a ppear intact where visualized. Spondylosis of the cervical spine visualized at C5-6. Soft tissues: No paravertebral stripe thickening. IMPRESSION: Thoracic spine without acute fracture or malalignment. Mid cervical spondylosis. Reviewed by: Danilo Magana MD on 04/10/2021 8:37 PM PDT Approved by: Danilo Magana MD on 04/10/2021 8:37 PM PDT Station ID: [id number]
== END 2021-04-10 17:32 | disposition home or self-care (01) ==
LOC: DI.N 17:31
PROVIDERS: ATTEND Nurse Practitioner
DX: M47.812 Spondylosis without myelopathy or radiculopathy, cervical region (principal)

== ENCOUNTER 2021-05-22 06:07 | Day surgery (SDC) | payer OTHER ==
[2021-05-22] MEDS ORDERED: LACTATED RINGERS 1,000 ML IV ONE ×2 (06:28→08:07)
[2021-05-22] MEDS ORDERED: MIDAZOLAM 2 MG/2 ML VIAL ONE ×2 (07:20)
[2021-05-22] MEDS ORDERED: fentaNYL 250 MCG/5 ML VIAL ONE (07:20)
[2021-05-22] MEDS ORDERED: ONDANSETRON 4 MG/2 ML VIAL ONE ×2 (07:23)
[2021-05-22 08:57] VITALS: BP 137/80
== END 2021-05-22 06:08 | disposition home or self-care (01) ==
LOC: SDS 06:07
PROVIDERS: ATTEND Surgery
DX: Z12.11 Encounter for screening for malignant neoplasm of colon (principal); E11.9 Type 2 diabetes mellitus without complications; E78.5 Hyperlipidemia, unspecified; H91.90 Unspecified hearing loss, unspecified ear; G47.33 Obstructive sleep apnea (adult) (pediatric); K76.0 Fatty (change of) liver, not elsewhere classified; J45.909 Unspecified asthma, uncomplicated; K58.9 Irritable bowel syndrome, unspecified; Z86.010 Personal history of colon polyps; Z79.4 Long term (current) use of insulin; Z79.899 Other long term (current) drug therapy; Z86.39 Personal history of other endocrine, nutritional and metabolic disease
CPT/HCPCS: 45378; J3010; J7120

== ENCOUNTER 2021-06-18 08:00 | Outpatient (CLI) | payer OTHER ==
[2021-06-18 12:00] LABS: ALBUMIN/GLOBULIN RATIO 1.1 (1.0-2.2); ALKALINE PHOSPHATASE 93 IU/L (42-121); ALT ALANINE AMINOTRANSFERASE 59 IU/L (10-60); AST ASPARTATE AMINOTRANSFERASE 55 IU/L (10-42); BILIRUBIN,TOTAL 0.7 mg/dL (0.2-1.0); BUN - BLOOD UREA NITROGEN 12 mg/dL (6-20); CALCIUM 9.9 mg/dL (8.5-10.3); CARBON DIOXIDE - CO2 30 mmol/L (21-32); CHLORIDE 102 mmol/L (101-111); CHOL/HDL RATIO 3.6 (<4.4); CHOLESTEROL 128 mg/dL; CREATININE 0.6 mg/dL (0.4-1.0); GFR - MDRD 103 (>89); GLUCOSE 99 mg/dL (70-100); HDL CHOLESTEROL 36 mg/dL; LDL CHOLESTEROL,CALCULATED 75 mg/dL; LDL/HDL RATIO 2.1 (<4.4); POTASSIUM 3.9 mmol/L (3.5-5.0); SODIUM 142 mmol/L (135-145); TOTAL PROTEIN 7.5 g/dL (6.7-8.2); TRIGLYCERIDES 87 mg/dL; VLDL CHOLESTEROL 17 mg/dL
[2021-06-18 12:16] LABS: ESTIMATED AVERAGE GLUCOSE 151 mg/dL (70-100); HEMOGLOBIN A1c% 6.9 % (4.27-6.07)
== END 2021-06-18 23:59 | disposition home or self-care (01) ==
LOC: LAB.WCP 08:00
PROVIDERS: ATTEND Physician Assistant Medical
DX: E11.9 Type 2 diabetes mellitus without complications (principal)
CPT/HCPCS: 36415; 80053; 80061; 83036; 83721

== ENCOUNTER 2021-07-30 08:33 | Outpatient (CLI) | payer OTHER ==
[2021-07-30 09:06] VITALS: BP 129/68
--- NOTE | 2021-07-30 09:06 | SLEEP CARE CONSULTATION ---
Information from patient questionnaire entered by Marisa Lizarraga. I have reviewed and concur with the information entered by Marisa Lizarraga. This document represents the service I personally performed and the decisions made by , Naye Perkins ARNP. History of Present Illness Service Date and Time: 07/30/2021 0833 Previous diagnosis: Mild, Obstructive Sleep Apnea-Hypopnea Syndrome AHI: 5.5 Reason for follow up: annual Equipment type: CPAP Equipment obtained from: [facility] (not getting supplies) Mask style: Nasal pillows Backup mask available: No (will need to keep old mask when replaced) Last cushion change: 2 months [facility]: Pol[facility]omn[facility] HPI additional information: ALLEN CROOKS was diagnosed to have mild, AHI 5.5, obstructive sleep apnea- hypopnea syndrome and returned today for CPAP therapy annual follow-up. CPAP Compliance Data - Data Reviewed with Patient Average duration of nightly device use: 8 hours 14 minutes Compliance rate %: 96.7 Current pressure setting (cmH2O): 6 Humidity settin Heated hose settin Average residual AHI: 4.3 Average large leak: 3 seconds Subjective Missed days of use due to: reports: other Patient concerns: reports: dry mouth, nose, throat (due to medication; uses Biotene drops regularly). denies: aerophagia, mask discomfort, air blowing in eyes, mask leak noise, condensation in mask/hose, nasal congestion, epistaxis, other Observed to snore while using device: No Current pressure setting perceived as: comfortable On therapy, patient: reports: sleeping better, awakening more refreshed, being more awake and alert during the day, more rested overall. denies: drowsiness while driving Initial [place] Sleepiness Scale score: 18 Current [place] Sleepiness Scale score: 1 Allergies and Home Medications Home medication list reviewed: Yes (no changes) Review of Systems Review of systems same as previous: Yes (no changes) Physical Exam Blood Pressure: 129/68 Cuff size: wrist Heart Rate: 72 O2 Saturation: 98 Height: 5 ft 4 in Weight: 209 lb 12.8 oz Body Mass Index: 36.0 BMI Classification: Obese Impression and Plan 1. Obstructive Sleep Apnea-Hypopnea Syndrome, mild, with good treatment compliance and good apnea control. On CPAP therapy, the patient has better sleep quality and is more rested overall. Patient has a REMstar 60 series [employer] machine. I informed the patient that [employer] has a recall on several devices like the patients machine. Patient was encouraged to register their device online with [employer] for the recall to see if their device is affected. If their device is affected they should start a claim. Patient denies any black particles seen in machine or hoses, any unusual odors coming from device. Patient has not experienced any physical symptoms such as upper airway irritation, headache, skin or eye irritation, asthma, nausea/vomiting, difficulty breathing or chest pain. Patient informed that they may use an inline CPAP filter that they can obtain online to reduce chance of any particles being inhaled or ingested. We discussed thoroughly the health risks of not using the CPAP versus continuing use with the filter in place. If patient is not able to sleep due to waking up choking, gasping for air or other respiratory distress that they may decide to continue using it until it is either replaced or repaired. Since the patients current machine is at least 5 years old the patient is opting to update their device with a device that is not on the recall. Patient needs a new DME company so we will write for a transfer so that she may obtain supplies in her new device. Patient was encouraged to lose weight for their overall health and to reduce apneas. Patient voiced understanding and agreement with plan. Patient's apnea severity and rationale for treatment to reduce apnea, improve sleep quality and reduce cardiovascular and cerebrovascular events was reviewed. I also reviewed the benefit of consistent device use of CPAP for hypertension and diabetes. * Continue CPAP pressure at 6 cmH2O * Transfer DME * Update device * Update supplies as needed * Notify me if snoring with mask or feeling that the pressure is too much or too little * Attempt to lose weight * Call this office if any problems using CPAP * Return for follow up one month after obtaining new device, or sooner if concerns arise Counseling Topics: Spare mask, Weight loss health impact Visit Type: In Office Time Spent with Patient (minutes): 21 Provider Statement: I spent 100% of the Face to Face Visit with the patient with greater than 50% spent counseling the patient and coordination of care.
== END 2021-07-30 08:34 | disposition home or self-care (01) ==
LOC: SC 08:33
PROVIDERS: ATTEND Nurse Practitioner Family
DX: G47.33 Obstructive sleep apnea (adult) (pediatric) (principal); E66.9 Obesity, unspecified; Z68.36 Body mass index [BMI] 36.0-36.9, adult
CPT/HCPCS: 99212; 99213

== ENCOUNTER 2021-12-31 08:54 | Outpatient (CLI) | payer OTHER ==
[2021-12-31 12:31] LABS: ALBUMIN/GLOBULIN RATIO 1.2 (1.0-2.2); ALKALINE PHOSPHATASE 82 IU/L (42-121); ALT ALANINE AMINOTRANSFERASE 47 IU/L (10-60); AST ASPARTATE AMINOTRANSFERASE 50 IU/L (10-42); BILIRUBIN,TOTAL 0.5 mg/dL (0.2-1.0); BUN - BLOOD UREA NITROGEN 12 mg/dL (6-20); CALCIUM 9.3 mg/dL (8.5-10.3); CARBON DIOXIDE - CO2 29 mmol/L (21-32); CHLORIDE 102 mmol/L (101-111); CHOL/HDL RATIO 3.8 (<4.4); CHOLESTEROL 126 mg/dL; CREATININE 0.7 mg/dL (0.4-1.0); GFR - MDRD 86 (>89); GLUCOSE 100 mg/dL (70-100); HDL CHOLESTEROL 33 mg/dL; LDL CHOLESTEROL,CALCULATED 77 mg/dL; LDL/HDL RATIO 2.3 (<4.4); POTASSIUM 4.1 mmol/L (3.5-5.0); SODIUM 139 mmol/L (135-145); TOTAL PROTEIN 7.4 g/dL (6.7-8.2); TRIGLYCERIDES 81 mg/dL; VLDL CHOLESTEROL 16 mg/dL
[2021-12-31 12:37] LABS: CREATININE,URINE 251.8 mg/dL; MICROALBUM/CREATININE RATIO,UR 3.6 ug/mg (<30.0); MICROALBUMIN,URINE 0.9 mg/dL (0-300.0)
[2021-12-31 12:39] LABS: THYROID STIMULATING HORMONE 2.2 uIU/mL (0.34-5.60)
[2021-12-31 12:43] LABS: ESTIMATED AVERAGE GLUCOSE 154 mg/dL (70-100)
== END 2021-12-31 08:55 | disposition home or self-care (01) ==
LOC: LAB.N 08:54
PROVIDERS: ATTEND Physician Assistant Medical
DX: E11.9 Type 2 diabetes mellitus without complications (principal)
CPT/HCPCS: 36415; 80053; 80061; 82043; 82570; 83036; 83721; 84443

== ENCOUNTER 2022-02-03 09:53 | Outpatient (CLI) | payer OTHER ==
--- NOTE | 2022-02-04 15:52 | Mammography Report ---
BILATERAL DIGITAL SCREENING MAMMOGRAM 3D/2D: 02/03/2022 CLINICAL: Routine screening. Personal history of left breast cancer. Comparison is made to exams dated: 11/26/2019 mammogram and 10/25/2018 mammogram - [facility]. There are scattered fibroglandular elements in both breasts. There are benign post operative findings in the left breast. No significant masses, calcifications, or other findings are seen in either breast. There has been no significant interval change. IMPRESSION: BENIGN There is no mammographic evidence of malignancy. A 1 year screening mammogram is recommended. This exam was interpreted at Station ID: [id number]. NOTE: For mammograms, a report in lay terms will be sent to the patient. Approximately 15% of breast malignancies will not be visualized mammographically. In the management of a palpable breast mass, a negative mammogram must not discourage biopsy of a clinically suspicious lesion. Electronically Signed By: Iwona ibanez/gary:02/03/2022 15:09:16 ACR BI-RADS Category 2: Benign Finding(s) 3342F PARENCHYMAL PATTERN: (A) - The breast(s) demonstrate(s) scattered fibroglandular densities. BI-RADS CATEGORY: (2) - 2 RECOMMENDATION: (ANNUAL) - Recommend routine annual screening mammography. [id number] 1 year screening LATERALITY: (B)
== END 2022-02-03 09:54 | disposition home or self-care (01) ==
LOC: DI.N 09:53
PROVIDERS: ATTEND Physician Assistant
DX: Z12.31 Encounter for screening mammogram for malignant neoplasm of breast (principal); Z85.3 Personal history of malignant neoplasm of breast

== ENCOUNTER 2022-09-20 08:18 | Outpatient (CLI) | payer OTHER ==
[2022-09-20 12:54] LABS: ALBUMIN/GLOBULIN RATIO 1.3 (1.0-2.2); BILIRUBIN,TOTAL 0.7 mg/dL (0.2-1.0); CALCIUM 9.7 mg/dL (8.5-10.3); CREATININE 0.7 mg/dL (0.4-1.0); POTASSIUM 4.1 mmol/L (3.5-5.0); TOTAL PROTEIN 7.2 g/dL (6.7-8.2)
[2022-09-20 14:41] LABS: ESTIMATED AVERAGE GLUCOSE 146 mg/dL (70-100); HEMOGLOBIN A1c% 6.7 % (4.27-6.07)
== END 2022-09-20 08:19 | disposition home or self-care (01) ==
LOC: LAB.N 08:18
PROVIDERS: ATTEND Physician Assistant Medical
DX: E11.9 Type 2 diabetes mellitus without complications (principal)
CPT/HCPCS: 36415; 80053; 83036

== ENCOUNTER 2023-02-21 10:11 | Outpatient (CLI) | payer OTHER ==
--- NOTE | 2023-02-22 10:22 | Mammography Report ---
BILATERAL DIGITAL SCREENING MAMMOGRAM 3D/2D: 02/21/2023 CLINICAL: Routine screening. Personal history of left breast cancer. Comparison is made to exams dated: 02/03/2022 mammogram, 11/26/2019 mammogram, 10/25/2018 mammogram - [facility], 08/17/2015 mammogram, and 12/22/2017 mammogram - [facility]. There are scattered areas of fibroglandular density in both breasts (category b / 25%-50% glandular t issue). There are benign post operative findings in the left breast. No significant masses, calcifications, or other findings are seen in either breast. There has been no significant interval change. IMPRESSION: BENIGN There is no mammographic evidence of malignancy. A 1 year screening mammogram is recommended. This exam was interpreted at Station ID: [id number]. NOTE: For mammograms, a report in lay terms will be sent to the patient. Approximately 15% of breast malignancies will not be visualized mammographically. In the management of a palpable breast mass, a negative mammogram must not discourage biopsy of a clinically suspicious lesion. Electronically Signed By: Chad bray/gary:02/21/2023 14:08:34 letter sent: No_Letter ACR BI-RADS Category 2: Benign Finding(s) 3342F PARENCHYMAL PATTERN: (A) - The breast(s) demonstrate(s) scattered fibroglandular densities. BI-RADS CATEGORY: (2) - 2 Mammogram [id number] 1 year screening LATERALITY: (B)
== END 2023-02-21 10:12 | disposition home or self-care (01) ==
LOC: DI.N 10:11
PROVIDERS: ATTEND Physician Assistant
DX: Z12.31 Encounter for screening mammogram for malignant neoplasm of breast (principal); Z85.3 Personal history of malignant neoplasm of breast

== ENCOUNTER 2023-03-16 07:14 | Outpatient (CLI) | payer OTHER ==
[2023-03-16 11:39] LABS: BASOPHILS # (AUTO) 0.1 10^3/uL (0.0-0.1); BASOPHILS % (AUTO) 1.1 %; EOSINOPHILS # (AUTO) 0.3 10^3/uL (0.0-0.7); EOSINOPHILS % (AUTO) 3.8 %; HCT - HEMATOCRIT 45.4 % (37.0-47.0); HGB - HEMOGLOBIN 15.2 g/dL (12.0-16.0); LYMPHOCYTES # (AUTO) 3.4 10^3/uL (1.5-3.5); LYMPHOCYTES % (AUTO) 38.6 %; MEAN CORPUSCULAR HEMOGLOBIN 31.5 pg (27.0-31.0); MEAN CORPUSCULAR HGB CONC 33.5 g/dL (32.0-36.0); MEAN CORPUSCULAR VOLUME 94.2 fL (81.0-99.0); MEAN PLATELET VOLUME 11.3 fL (7.9-10.8); MONOCYTES # (AUTO) 0.6 10^3/uL (0.0-1.0); MONOCYTES % (AUTO) 6.5 %; NEUTROPHILS # (AUTO) 4.4 10^3/uL (1.5-6.6); NEUTROPHILS % (AUTO) 49.9 %; PLT - PLATELET COUNT 231 10^3/uL (130-450); RED BLOOD COUNT 4.82 10^6/uL (4.20-5.40); RED CELL DISTRIBUTION WIDTH 12.6 % (12.0-15.0); WHITE BLOOD COUNT 8.8 x10^3/uL (4.8-10.8)
[2023-03-16 11:52] LABS: ALBUMIN 3.9 g/dL (3.2-5.5); ALKALINE PHOSPHATASE 85 IU/L (42-121); ALT ALANINE AMINOTRANSFERASE 48 IU/L (10-60); AST ASPARTATE AMINOTRANSFERASE 47 IU/L (10-42); BILIRUBIN,TOTAL 0.7 mg/dL (0.2-1.0); BUN - BLOOD UREA NITROGEN 11 mg/dL (6-20); CALCIUM 9.2 mg/dL (8.5-10.3); CARBON DIOXIDE - CO2 30 mmol/L (21-32); CHLORIDE 102 mmol/L (101-111); CHOL/HDL RATIO 3.3 (<4.4); CHOLESTEROL 122 mg/dL; CREATININE 0.6 mg/dL (0.4-1.0); GFR - MDRD 102 (>89); GLUCOSE 93 mg/dL (70-100); HDL CHOLESTEROL 37 mg/dL; LDL CHOLESTEROL,CALCULATED 62 mg/dL; LDL/HDL RATIO 1.7 (<4.4); POTASSIUM 3.8 mmol/L (3.5-5.0); SODIUM 143 mmol/L (135-145); TOTAL PROTEIN 7.7 g/dL (6.7-8.2); TRIGLYCERIDES 115 mg/dL; VLDL CHOLESTEROL 23 mg/dL
[2023-03-16 12:02] LABS: THYROID STIMULATING HORMONE 2.67 uIU/mL (0.34-5.60)
[2023-03-16 12:03] LABS: ESTIMATED AVERAGE GLUCOSE 143 mg/dL (70-100); HEMOGLOBIN A1c% 6.6 % (4.27-6.07)
[2023-03-16 12:06] LABS: CREATININE,URINE 200.5 mg/dL; MICROALBUM/CREATININE RATIO,UR 7.5 ug/mg (<30.0); MICROALBUMIN,URINE 1.5 mg/dL (0-300.0)
== END 2023-03-16 07:15 | disposition home or self-care (01) ==
LOC: LAB.N 07:14
PROVIDERS: ATTEND Physician Assistant Medical
DX: Z00.00 Encounter for general adult medical examination without abnormal findings (principal); E78.5 Hyperlipidemia, unspecified; E11.9 Type 2 diabetes mellitus without complications; K21.9 Gastro-esophageal reflux disease without esophagitis
CPT/HCPCS: 36415; 80053; 80061; 82043; 82570; 83036; 83721; 84443; 85025

== ENCOUNTER 2023-09-14 07:27 | Outpatient (CLI) | payer OTHER ==
[2023-09-14 12:29] LABS: CALCIUM 9.7 mg/dL (8.5-10.3); CREATININE 0.6 mg/dL (0.6-1.3); POTASSIUM 3.7 mmol/L (3.5-4.5)
[2023-09-14 12:58] LABS: ESTIMATED AVERAGE GLUCOSE 154 mg/dL (70-100)
== END 2023-09-14 07:28 | disposition home or self-care (01) ==
LOC: LAB.N 07:27
PROVIDERS: ATTEND Physician Assistant Medical
DX: E11.9 Type 2 diabetes mellitus without complications (principal)
CPT/HCPCS: 36415; 80048; 83036

== ENCOUNTER 2024-02-27 14:20 | Outpatient (CLI) | payer OTHER ==
--- NOTE | 2024-02-28 08:43 | Mammography Report ---
BILATERAL DIGITAL SCREENING MAMMOGRAM 3D/2D: 02/27/2024 CLINICAL: Routine screening. Personal history of left breast cancer. Comparison is made to exams dated: 02/21/2023 mammogram, 02/03/2022 mammogram, 11/26/2019 mammogram, 2018 mammogram - [facility], 02/21/2018 specimen, and 02/21/2018 localization - [facility]. There are scattered areas of fibroglandular density in both breasts (category b / 25%-50% glandular t issue). There are benign post operative findings in the left breast. No significant masses, calcifications, or other findings are seen in either breast. There has been no significant interval change. IMPRESSION: BENIGN There is no mammographic evidence of malignancy. A 1 year screening mammogram is recommended. This exam was interpreted at Station ID: [id number]. NOTE: For mammograms, a report in lay terms will be sent to the patient. Approximately 15% of breast malignancies will not be visualized mammographically. In the management of a palpable breast mass, a negative mammogram must not discourage biopsy of a clinically suspicious lesion. Electronically Signed By: Iwona ibanez/gary:02/27/2024 16:30:56 letter sent: No_Letter ACR BI-RADS Category 2: Benign Finding(s) 3342F PARENCHYMAL PATTERN: (A) - The breast(s) demonstrate(s) scattered fibroglandular densities. BI-RADS CATEGORY: (2) - 2 RECOMMENDATION: (ANNUAL) - Recommend routine annual screening mammography. [id number] 1 year screening LATERALITY: (B)
== END 2024-02-27 14:21 | disposition home or self-care (01) ==
LOC: DI.N 14:20
PROVIDERS: ATTEND Internal Medicine Hematology & Oncology
DX: Z12.31 Encounter for screening mammogram for malignant neoplasm of breast (principal); R92.323 Mammographic fibroglandular density, bilateral breasts; Z85.3 Personal history of malignant neoplasm of breast

== ENCOUNTER 2024-03-14 08:55 | Outpatient (CLI) | payer OTHER ==
[2024-03-14 11:47] LABS: BASOPHILS # (AUTO) 0.1 10^3/uL (0.0-0.1); BASOPHILS % (AUTO) 0.9 %; EOSINOPHILS # (AUTO) 0.3 10^3/uL (0.0-0.7); HCT - HEMATOCRIT 41.8 % (37.0-47.0); HGB - HEMOGLOBIN 13.6 g/dL (12.0-16.0); LYMPHOCYTES # (AUTO) 2.9 10^3/uL (1.5-3.5); LYMPHOCYTES % (AUTO) 38.3 %; MEAN CORPUSCULAR HEMOGLOBIN 30.8 pg (27.0-31.0); MEAN CORPUSCULAR HGB CONC 32.5 g/dL (32.0-36.0); MEAN CORPUSCULAR VOLUME 94.8 fL (81.0-99.0); MEAN PLATELET VOLUME 11.7 fL (7.9-10.8); MONOCYTES # (AUTO) 0.6 10^3/uL (0.0-1.0); MONOCYTES % (AUTO) 7.8 %; NEUTROPHILS # (AUTO) 3.6 10^3/uL (1.5-6.6); NEUTROPHILS % (AUTO) 48.7 %; PLT - PLATELET COUNT 189 10^3/uL (130-450); RED BLOOD COUNT 4.41 10^6/uL (4.20-5.40); RED CELL DISTRIBUTION WIDTH 12.8 % (12.0-15.0); WHITE BLOOD COUNT 7.4 x10^3/uL (4.8-10.8)
[2024-03-14 12:00] LABS: ALBUMIN 4.1 g/dL (3.2-5.5); ALBUMIN/GLOBULIN RATIO 1.5 (1.0-2.2); ALKALINE PHOSPHATASE 80 IU/L (42-121); ALT ALANINE AMINOTRANSFERASE 30 IU/L (10-60); AST ASPARTATE AMINOTRANSFERASE 38 IU/L (10-42); BILIRUBIN,TOTAL 0.5 mg/dL (0.2-1.0); BUN - BLOOD UREA NITROGEN 13 mg/dL (6-20); CALCIUM 9.6 mg/dL (8.5-10.3); CARBON DIOXIDE - CO2 31 mmol/L (21-32); CHLORIDE 104 mmol/L (101-111); CHOL/HDL RATIO 3.5 (<4.4); CHOLESTEROL 126 mg/dL; CREATININE 0.6 mg/dL (0.6-1.3); GFR - MDRD 102 (>89); GLUCOSE 146 mg/dL (74-104); HDL CHOLESTEROL 36 mg/dL; LDL CHOLESTEROL,CALCULATED 73 mg/dL; POTASSIUM 4.1 mmol/L (3.5-4.5); SODIUM 140 mmol/L (135-145); TOTAL PROTEIN 6.8 g/dL (6.4-8.9); TRIGLYCERIDES 84 mg/dL (48-352); VLDL CHOLESTEROL 17 mg/dL
[2024-03-14 12:06] LABS: CREATININE,URINE 157.5 mg/dL
[2024-03-14 12:10] LABS: MICROALBUMIN,URINE < 0.7 mg/dL
[2024-03-14 12:12] LABS: THYROID STIMULATING HORMONE 3.68 uIU/mL (0.34-5.60)
[2024-03-14 12:32] LABS: ESTIMATED AVERAGE GLUCOSE 180 mg/dL (70-100); HEMOGLOBIN A1c% 7.9 % (4.27-6.07)
== END 2024-03-14 08:56 | disposition home or self-care (01) ==
LOC: LAB.N 08:55
PROVIDERS: ATTEND Physician Assistant Medical
DX: Z00.00 Encounter for general adult medical examination without abnormal findings (principal); E11.9 Type 2 diabetes mellitus without complications; E78.5 Hyperlipidemia, unspecified
CPT/HCPCS: 36415; 80053; 80061; 82043; 82570; 83036; 83721; 84443; 85025

== ENCOUNTER 2024-05-09 16:45 | Outpatient (CLI) | payer OTHER ==
--- NOTE | 2024-05-09 17:27 | XRAY Report ---
PROCEDURE: Foot 1-2V LT INDICATIONS: LEFT HEEL PAIN TECHNIQUE: 2 views of the foot were acquired. COMPARISON: None. FINDINGS: Bones: No fractures or dislocations. No suspicious bony lesions. Plantar and posterior calcaneal e nthesophyte. Soft tissues: No tibiotalar joint effusion. Achilles tendon appears normal. IMPRESSION: No acute bony abnormality. Mild plantar and posterior calcaneal enthesophytes. Reviewed by: Pancho Kelley MD on 05/09/2024 5:26 PM PDT Approved by: Pancho Kelley MD on 05/09/2024 5:26 PM PDT Station ID: [id number]
== END 2024-05-09 16:46 | disposition home or self-care (01) ==
LOC: DI 16:45
PROVIDERS: ATTEND Physician Assistant Medical
DX: M77.32 Calcaneal spur, left foot (principal); M77.52 Other enthesopathy of left foot and ankle

== ENCOUNTER 2024-06-14 07:51 | Outpatient (CLI) | payer OTHER ==
[2024-06-14 12:46] LABS: CALCIUM 9.5 mg/dL (8.5-10.3); CREATININE 0.6 mg/dL (0.6-1.3)
[2024-06-14 13:19] LABS: ESTIMATED AVERAGE GLUCOSE 151 mg/dL (70-100); HEMOGLOBIN A1c% 6.9 % (4.27-6.07)
== END 2024-06-14 07:52 | disposition home or self-care (01) ==
LOC: LAB.N 07:51
PROVIDERS: ATTEND Physician Assistant Medical
DX: E11.9 Type 2 diabetes mellitus without complications (principal)
CPT/HCPCS: 36415; 80048; 83036